=== PATIENT | female | born 1945 | race Caucasian/White ===

== ENCOUNTER 2025-03-05 12:52 | Emergency (ER) | payer MEDICARE, OTHER ==
[~2025-03-05] VITALS: Ht 152.4 cm; Wt 54.0 kg
[2025-03-05 15:57] VITALS: BP 135/65; TEMP 98.6; O2SAT 98
== END 2025-03-05 15:58 | disposition home or self-care (01) ==
LOC: ER 12:52
DX: R51.9 Headache, unspecified (principal); W01.0XXA Fall on same level from slipping, tripping and stumbling without subsequent striking against object, initial encounter; Y93.89 Activity, other specified; Y92.89 Other specified places as the place of occurrence of the external cause; Y99.8 Other external cause status
CPT/HCPCS: 70450-TC